=== PATIENT | female | born 1975 | race Caucasian/White ===

== ENCOUNTER 2016-11-20 07:24 | Emergency (ER) | payer OTHER ==
[~2016-11-20] VITALS: Ht 154.9 cm; Wt 68.0 kg
--- NOTE | 2016-11-20 07:40 | Emergency Room Report ---
History of Present Illness General Chief Complaint: Chest Pain Source: Patient Present Illness HPI This is a 41-year-old female who presented after increased central chest pain. Patient reported having a pressure sensation. This occurred at 2 hours prior to arrival. Patient had prior history of anxiety. Pain resolve spontaneously. She denied any fever or cough. She reported having some associated left arm numbness. The patient denied any other locations of pain.The patient reported having history of anxiety. The patient denies taking medications. She reports she's had elevated blood pressure on prior doctor visit however does not have regular history of hypertension. She is nonsmoker. She denied any pain or swelling. She had no recent travel. Allergies: Coded Allergies: No Known Allergies (Unverified , 11/20/16) Patient History Past Medical History: see triage record Last Menstrual Period: 1 year ago Reviewed Nursing Documentation: PMH: Agreed, PSxH: Agreed Nursing Documentation-PM Past Medical History: No History, Except For History Of Psychiatric Problem: Yes - Anxiety Review of Systems All Other Systems: negative except mentioned in HPI Physical Exam Vital Signs Date Time Temp Pulse Resp B/P Pulse Ox O2 Delivery O2 Flow Rate FiO2 11/20/16 07:31 96.8 83 12 162/86 100 Room Air Sp02 EP Interpretation: reviewed, normal General Appearance: normal inspection, well appearing, no apparent distress, alert, GCS 15 Head: atraumatic ENT: normal ENT inspection, hearing grossly normal, normal voice Neck: normal inspection, full range of motion, supple, no bony tend Respiratory: normal inspection, lungs clear, normal breath sounds, no respiratory distress, no retraction, no wheezing Cardiovascular #1: regular rate, rhythm, no edema Gastrointestinal: normal inspection, normal bowel sounds, non tender, soft, no guarding, no hernia Genitourinary: no CVA tenderness Musculoskeletal: normal inspection, back normal, normal range of motion Neurologic: normal inspection, alert, oriented x3, responsive, director data processing III-XII nml as tested, speech normal Psychiatric: normal inspection, judgement/insight normal, mood/affect normal Skin: normal inspection, normal color, no rash Medical Decision Making Diagnostic Impression: Primary Impression: ACS (acute coronary syndrome) Additional Impressions: Chest pain Fatty liver ER Course Patient presented for chest pain. Differential diagnosis included but was not limited to acute coronary syndrome, pulmonary embolism, pneumonia, aortic dissection, shingles, pneumothorax, aortic dissection, esophageal rupture, pericarditis. EKG interpreted E. showed normal sinus rhythm with rate of [address] or T wave changes noted. Repeat EKG showed no significant change.Patient was noted to have no risk factors for pulmonary embolism. The initial troponin was negative.Some nondiagnostic inferior EKG changes. The patient was pain-free throughout ER course. Ultrasound of the right upper quadrant showed no evidence of gallbladder obstruction and fatty liver. The patient was given aspirin. The patient was discussed with from [facility] for acute transfer for further evaluation of cardiac injury Labs Test 11/20/16 07:36 11/20/16 08:20 White Blood Count 9.2 K/UL (4.8-10.8) Red Blood Count 5.16 M/UL (4.20-5.40) Hemoglobin 16.7 G/DL (12.0-16.0) Hematocrit 48.1 % (37.0-47.0) Mean Corpuscular Volume 93 FL (80-99) Mean Corpuscular Hemoglobin 32.5 PG (27.0-31.0) Mean Corpuscular Hemoglobin Concent 34.8 G/DL (32.0-36.0) Red Cell Distribution Width 11.8 % (11.6-14.8) Platelet Count 193 K/UL (150-450) Mean Platelet Volume 9.0 FL (6.5-10.1) Neutrophils (%) (Auto) % (45.0-75.0) Lymphocytes (%) (Auto) % (20.0-45.0) Monocytes (%) (Auto) % (1.0-10.0) Eosinophils (%) (Auto) % (0.0-3.0) Basophils (%) (Auto) % (0.0-2.0) Differential Total Cells Counted 100 Neutrophils % (Manual) 29 % (45-75) Lymphocytes % (Manual) 61 % (20-45) Monocytes % (Manual) 9 % (1-10) Eosinophils % (Manual) 0 % (0-3) Basophils % (Manual) 1 % (0-2) Band Neutrophils 0 % (0-8) Platelet Estimate Adequate Platelet Morphology Normal Red Blood Cell Morphology Normal D-Dimer 420 ng/mL (<500) Sodium Level 143 mEQ/L (135-145) Potassium Level 3.5 mEQ/L (3.4-4.9) Chloride Level 103 mEQ/L (98-107) Carbon Dioxide Level 25 mEQ/L (20-30) Anion Gap 15 (5-15) Blood Urea Nitrogen 14 mg/dL (7-23) Creatinine 0.7 mg/dL (0.5-0.9) Estimat Glomerular Filtration Rate > 60 mL/min (>60) Glucose Level 204 mg/dL (74-106) Calcium Level 9.2 mg/dL (8.6-10.2) Total Bilirubin 0.4 mg/dL (0.0-1.2) Aspartate Amino Transf (AST/SGOT) 77 U/L (5-40) Alanine Aminotransferase (ALT/SGPT) 141 U/L (3-33) Alkaline Phosphatase 137 U/L (35-104) Total Creatine Kinase 143 U/L (26-140) Creatine Kinase MB < 1.5 ng/mL (< 3.8) Creatine Kinase MB Relative Index 1.0 Troponin I < 0.30 ng/mL (<=0.30) Total Protein 7.8 g/dL (6.6-8.7) Albumin 4.7 g/dL (3.5-5.2) Globulin 3.1 g/dL Albumin/Globulin Ratio 1.5 (1.0-2.7) Lipase 38 U/L (< 60) Urine HCG, Qualitative Negative EKG Diagnostic Results Rate: normal Rhythm: NSR ST Segments: other - inferior st changes, nondiagnostic for stemi Chest X-Ray Diagnostic Results Chest X-Ray Diagnostic Results : Chest X-Ray Ordered: Yes # of Views/Limited/Complete: 1 View Indication: Chest Pain EP Interpretation: Yes Interpretation: no consolidation, no effusion, no pneumothorax, no acute cardiopulmonary disease Impression: No acute disease Interpreting ER Provider: Electronically signed by Dr. Venkat Diehl M.D. Last Vital Signs Date Time Temp Pulse Resp B/P Pulse Ox O2 Delivery O2 Flow Rate FiO2 11/20/16 07:31 96.8 83 12 162/86 100 Room Air Status: improved Disposition: XFER SHT-TRM HOSP Condition: Serious Scripts Omeprazole Magnesium (PRILOSEC) 10 Mg Suspdr.pkt 10 MG ORAL DAILY, #30 PACKET Prov: Venkat Diehl 11/20/16 Dicyclomine Hcl* (BENTYL*) 10 Mg Capsule 10 MG ORAL FOUR TIMES A DAY, #20 CAP Prov: Venkat Diehl 11/20/16 Venkat Diehl Nov 20, 2016 07:40
[2016-11-20 07:44] VITALS: BP 131/80
[2016-11-20] MEDS ORDERED: Nitroglycerin Subl 0.4mg tab (Bottle Of 25) SL PRN (07:45)
[2016-11-20] MEDS ORDERED: Aspirin Baby 81mg ORAL ONE (07:45)
[2016-11-20 07:49] LABS: MEAN CORPUSCULAR HEMOGLOBIN 32.5 PG (27.0-31.0); MEAN CORPUSCULAR HGB CONC 34.8 G/DL (32.0-36.0); MEAN CORPUSCULAR VOLUME 93 FL (80-99); PLATELET COUNT 193 K/UL (150-450); RED BLOOD COUNT 5.16 M/UL (4.20-5.40); RED CELL DISTRIBUTION WIDTH 11.8 % (11.6-14.8); WHITE BLOOD COUNT 9.2 K/UL (4.8-10.8)
[2016-11-20 08:05] LABS: TROPONIN I < 0.30 ng/mL (<=0.30)
[2016-11-20 08:09] LABS: ALANINE AMINOTRANSFERASE 141 U/L (3-33); ALBUMIN/GLOBULIN RATIO 1.5 (1.0-2.7); ANION GAP 15 (5-15); ASPARTATE AMINO TRANSFERASE 77 U/L (5-40); CALCIUM 9.2 mg/dL (8.6-10.2); CARBON DIOXIDE 25 mEQ/L (20-30); CHLORIDE 103 mEQ/L (98-107); CREATININE 0.7 mg/dL (0.5-0.9); GLOMERULAR FILTRATION RATE > 60 mL/min (>60); HEMOLYSIS 31; POTASSIUM 3.5 mEQ/L (3.4-4.9); SODIUM 143 mEQ/L (135-145); TOTAL PROTEIN 7.8 g/dL (6.6-8.7)
[2016-11-20 08:19] LABS: CKMB < 1.5 ng/mL (< 3.8)
--- NOTE | 2016-11-20 08:23 | Diagnostic Imaging Report ---
Indication: Shortness of breath Technique: Single portable AP view of the chest. Findings: Comparison: None. Surgical clips and abdominal right upper quadrant. The bones and remaining extra pulmonary soft tissues, cardiomediastinal silhouette, pulmonary vasculature and parenchyma, and pleural surfaces are unremarkable. IMPRESSION: Previous cholecystectomy Otherwise negative portable AP chest.
[2016-11-20 08:44] LABS: BAND NEUTROPHILS % (MANUAL) 0 % (0-8); BASOPHILS % (MANUAL) 1 % (0-2); EOSINOPHILS % (MANUAL) 0 % (0-3); LYMPHOCYTES % (MANUAL) 61 % (20-45); NEUTROPHILS % (MANUAL) 29 % (45-75); PLATELET ESTIMATE ADEQUATE; PLATELET MORPHOLOGY NORMAL; TOTAL CELLS COUNTED 100
[2016-11-20 10:26] VITALS: BP 132/81
--- NOTE | 2016-11-20 10:27 | Diagnostic Imaging Report ---
Indications: Right upper quadrant abdominal pain, nausea, elevated liver function tests, history of cholecystectomy 2005 Technique: Transabdominal real-time grayscale and duplex Doppler imaging of the upper abdomen and retroperitoneum was performed. Findings: Comparison: None. Liver normal size and surface contour, diffusely increased parenchymal echogenicity. No focal lesions. Gallbladder not identified. Bile ducts nondilated within liver. Common bile duct 10 mm. Pancreas is less portions unremarkable. Spleen unremarkable. Right kidney unremarkable. Left kidney unremarkable. Abdominal aorta, intrahepatic portion of inferior vena cava patent, normal caliber. Duplex Doppler imaging demonstrates antegrade flow in splenic, portal, hepatic veins. No ascites. IMPRESSION: Nonvisualization of gallbladder compatible with surgical history. Hepatic steatosis Otherwise negative
[2016-11-20] MEDS ORDERED: BENTYL10 MG ORAL (10:57)
[2016-11-20] MEDS ORDERED: PRILOSEC10 M1 ORAL (10:58)
[2016-11-20 11:38] LABS: TROPONIN I 0.85 ng/mL (<=0.30)
[2016-11-20 11:43] VITALS: BP 126/76
[2016-11-20 12:33] LABS: TROPONIN I 0.65 ng/mL (<=0.30)
[2016-11-20 12:50] VITALS: BP 139/87
--- NOTE | 2016-11-21 15:28 | Cardiology Report ---
APPROVED REPORT EKG Measurement Heart [id number] [place] [id number] Normal sinus rhythm Nonspecific T wave abnormality Abnormal ECG
--- NOTE | 2016-11-21 15:31 | Cardiology Report ---
APPROVED REPORT EKG Measurement Heart [id number] [place] [id number] Normal sinus rhythm Normal ECG
--- NOTE | 2016-11-21 15:31 | Cardiology Report ---
APPROVED REPORT EKG Measurement Heart [id number] [place] [id number] Normal sinus rhythm Normal ECG
== END 2016-11-20 12:51 | disposition short-term general hospital (02) ==
LOC: EMR 07:57
DX: I24.9 Acute ischemic heart disease, unspecified (principal); K76.0 Fatty (change of) liver, not elsewhere classified; Z90.49 Acquired absence of other specified parts of digestive tract
CPT/HCPCS: 36415; 71010; 76700; 80053; 81025; 82550; 82553; 83690; 84484; 85007; 85025; 85379; 93005